=== PATIENT | male | born 1935 | race Caucasian/White ===

== ENCOUNTER 2019-02-06 12:19 | Emergency (ER) | payer OTHER ==
[~2019-02-06] VITALS: Ht 175.3 cm; Wt 90.7 kg
[~2019-02-06 12:19] MED LIST: ALFALFA650 MG; HYDROCODONE-AP1 EAC6 PO; NOHOMEMEDICATIONS
[2019-02-06] MEDS ORDERED: VITAMIN B-12500 MCG PO (12:39)
[2019-02-06] MEDS ORDERED: KEFLEX500 M1 PO (14:13)
[2019-02-06] MEDS ORDERED: NAPROSYN500 M1 PO (14:13)
[2019-02-06 14:23] VITALS: BP 136/73
== END 2019-02-06 14:23 | disposition home or self-care (01) ==
LOC: M.ERS 12:19
DX: M65.272 Calcific tendinitis, left ankle and foot (principal); Z87.891 Personal history of nicotine dependence; Z87.442 Personal history of urinary calculi

== ENCOUNTER 2020-03-18 13:05 | Emergency (ER) | payer MEDICARE ==
[~2020-03-18] VITALS: Ht 175.3 cm; Wt 81.7 kg
[~2020-03-18 13:05] MED LIST changes: +KEFLEX500 M1 PO; +NAPROSYN500 M1 PO; +VITAMIN B-12500 MCG PO
[2020-03-18 15:15] LABS: HEMATOCRIT 44.8 % (42.0-52.0); HEMOGLOBIN 15.4 gm/dL (14.0-18.0); MCH 29.3 pg (26.0-34.0); MCHC 34.5 g/dL (28.0-37.0); MCV 85.1 fL (80.0-100.0); MPV 8.2 fl. (7.2-11.1); NUCLEATED RBCS 1 /100WBC; PLATELET COUNT* 81 thou/uL (150-400); RBC 5.26 mil/uL (4.50-6.00); RDW-CV 13.9 % (10.5-14.5)
[2020-03-18 15:20] LABS: WBC 1.5 thou/uL (4.0-11.0)
[2020-03-18 15:28] LABS: CALCIUM 7.9 mg/dL (8.5-10.1); CREATININE 1.7 mg/dL (0.6-1.3); POTASSIUM 3.5 mmol/L (3.5-5.1)
[2020-03-18 15:33] LABS: ALBUMIN 3.8 g/dL (3.4-5.0); TOTAL BILIRUBIN 0.4 mg/dL (<0.1-1.0); TOTAL PROTEIN 7.1 g/dL (6.4-8.2)
[2020-03-18 16:16] LABS: PLATELET ESTIMATE DECREASED
[2020-03-18 16:17] LABS: ABSOLUTE LYMPHOCYTES 0.4 thou/uL (0.8-5.3); ABSOLUTE MONOCYTES 0.1 thou/uL (0.0-1.2); ABSOLUTE NEUTROPHILS 0.9 thou/uL (1.6-8.1)
[2020-03-18] MEDS ORDERED: NORCO 5-325 TA1 EAC2 PO (16:24)
[2020-03-18 17:16] VITALS: BP 130/70
--- NOTE | 2020-03-19 16:41 | EKG ---
[place] [address] ELECTROCARDIOGRAM REPORT Name: RICH GONZALEZ Room: [facility]#: [id number] Admission: 03/18/20 Attend Phys: Discharge: 03/18/20 Date of : 37 Date of Service: 03/18/20 1517 Report #: [id number] THIS REPORT FOR: //name// [facility] ED Test Date: 2020-03-18 Test Time: 15:17:55 Pat Name: RICH GONZALEZ Department: Room: Gender: [employer] Professor: [place] : 1935 Requested By: Jose Carlos Macedo Order Number: [id number] MD: Elder Greene Measurements Intervals [place] Rate: 69 P: 70 IA: 170 QRS: 82 QRSD: 145 T: 56 QT: 397 QTc: 426 Interpretive Statements Sinus rhythm Right bundle branch block Compared to ECG 05/19/2015 15:04:22 Right bundle-branch block now present Electronically Signed On 03-19-2020 16:41:35 CDT by Elder Greene [email or web address] <ELECTRONICALLY SIGNED> By: Elder Greene MD, [facility] 03/19/20 1641 1517 1517 Elder Greene MD, [facility] /EPI
== END 2020-03-18 17:18 | disposition home or self-care (01) ==
LOC: M.ERS 13:05
PROVIDERS: Family Medicine
DX: M25.551 Pain in right hip (principal); Z20.828 Contact with and (suspected) exposure to other viral communicable diseases; Z87.442 Personal history of urinary calculi; Z87.891 Personal history of nicotine dependence